=== PATIENT | female | born 1940 | race African-American/Black ===

== ENCOUNTER 2016-12-04 14:25 | Emergency (ER) | payer MEDICARE, OTHER ==
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
[2016-12-04] MEDS: SILVER SULFADIAZINE 20GM TUBE TP ONE (14:45)
[2016-12-04 15:09] VITALS: BP 146/90
== END 2016-12-04 14:55 | disposition home or self-care (01) ==
LOC: ED 14:25
DX: T21.03XA Burn of unspecified degree of upper back, initial encounter (principal); X58.XXXA Exposure to other specified factors, initial encounter; Y93.9 Activity, unspecified; Y99.9 Unspecified external cause status
CPT/HCPCS: 99283